=== PATIENT | male | born 1980 | race Two or more races ===

== ENCOUNTER → 2016-08-06 | Outpatient (REF) | payer MEDICARE, OTHER | LOC: M SFHCPLAZ 12:51 | PROVIDERS: ATTEND Internal Medicine Infectious Disease | DX: M86.9 Osteomyelitis, unspecified (principal); E10.40 Type 1 diabetes mellitus with diabetic neuropathy, unspecified | CPT/HCPCS: 87070; 87077; 87186; 87205; G0463 ==